=== PATIENT | male | born 1945 | race Two or more races ===

== ENCOUNTER 2016-04-21 23:46 | Emergency (ER) | payer MEDICARE, OTHER ==
[2016-04-21] MEDS ORDERED: IOPAMIDOL 370 (76%) 100 ML VIAL IV ONE (23:47)
[2016-04-22 00:26] LABS: ABSOLUTE NEUTROPHIL COUNT 6.5 K/mm3 (1.8-7.7); BASO # 0.1 K/mm3 (0.0-0.2); BASO % 0.7 % (0.2-1.0); EOS # 0.2 (0.0-0.5); EOS % 2.4 % (0.9-2.9); HEMOGLOBIN 14.8 gm/l (14.0-18.0); IMM NEUT # 0.1 K/mm3 (0-0.2); IMM NEUT% 0.6 % (0-1); LYMPH # 1.3 (1.0-4.8); LYMPH % 15.1 % (15-45); MEAN CELL VOLUME 89.3 fl (80.0-94.0); MEAN CORPUSCULAR HEMOGLOBIN 29.4 pg (27.0-31.0); MEAN CORPUSCULAR HGB CONC 32.9 g/dl (33.0-37.0); MEAN PLATELET VOLUME 9.5 fl (7.4-10.4); MONO # 0.7 (0.0-0.8); MONO % 7.6 % (4-12); NEUT % 73.6 % (43-75); PLATELET COUNT 268 K/mm3 (130-400); RED CELL DISTRIBUTION WIDTH 12.5 % (11.5-14.5)
[2016-04-22 00:45] LABS: ALB/GLOB RATIO 1.6 (>1.0); ALBUMIN 4.2 gm/dL (3.5-5.7); CALCIUM 9.3 mg/dL (8.6-10.3)
[2016-04-22 00:48] LABS: TROPONIN I < 0.01 ng/ml (0.0-0.06)
[2016-04-22 00:51] LABS: CKMB ISOENZYME 2.6 ng/ml (0.6-6.3)
[2016-04-22 02:17] LABS: SPECIFIC GRAVITY 1.015 (1.001-1.030); URINE BILIRUBIN NEGATIVE (NEGATIVE); URINE BLOOD NEGATIVE (NEGATIVE); URINE GLUCOSE (UA) NEGATIVE (NEGATIVE); URINE LEUKOCYTE ESTERASE NEGATIVE (NEGATIVE); URINE NITRITE NEGATIVE (NEGATIVE); URINE PROTEIN NEGATIVE (NEGATIVE); URINE UROBILINOGEN NORMAL (0-1 mg/dl)
[2016-04-22 02:20] LABS: URINE APPEARANCE CLEAR; URINE COLOR YELLOW
[2016-04-22] MEDS ORDERED: MAALOX/LIDO2%VISC/SIMETHICONE 40 ML BOT ONE (03:44)
--- NOTE | 2016-04-22 07:54 | CT ---
Exam Type: ABD/PELVIS W/ CON Date and Time: 04/22/2016 1:12 AM Clinical information: Diffuse abdominal pain for 2 days. Comparison: None Procedure: Imaging device: [employer] Aquilion [address] scanner 1 mm axial images were obtained through the abdomen and pelvis. Stacked reconstructed 3, 4 and 5 mm images were photographed in the axial coronal and sagittal planes. No oral contrast was utilized for this examination. 100 ml of Isovue-370 was injected intravenously. Exam: with intravenous contrast. FINDINGS: Lung bases:The visualized lung bases appear to be appropriate with no mass, effusion or consolidation visualized. Liver: the liver is homogeneous with no discrete abnormality visualized. No definite findings of biliary dilatation are observed. Spleen: The spleen is homogeneous and does not appear to be enlarged. Gallbladder: Normal without enlargement or evidence of adjacent inflammatory changes. Pancreas: Normal without enlargement or evidence of adjacent inflammatory changes. Adrenal glands: Normal without enlargement or evidence of adjacent inflammatory changes. Abdominal aorta: Atherosclerotic vascular calcification seen. No focal aneurysm is visualized. Kidneys: There are multiple bilateral low-attenuation foci observed likely reflecting renal cysts. Nonspecific fluid infiltration of the perinephric fat is observed. No evidence of hydronephrosis is visualized. Bowel structures: The visualized bowel is of normal caliber without dilatation or obstruction. There is evidence of thickening and edema suggested involving the distal stomach and proximal duodenum, likely reflecting ulcerative disease. On axial image #40, there is the suggestion of the medial outpouching with considerations including a duodenal diverticulum versus an area of ulceration. No evidence of free air is suggested. Appendix: The appendix is well-visualized and appears to be of normal caliber. No periappendiceal inflammatory changes or CT findings of appendicitis are currently observed. Bladder: The bladder is of normal contour. No wall thickening or significant distention is observed. Hernia: Bilateral fat filled inguinal hernias are present. Adenopathy: A few mildly prominent epigastric retroperitoneal lymph nodes are visualized. There is a lymph node measuring 11 mm on image 48 adjacent to the aorta, as well as a peripancreatic lymph node on image 39 measuring 8 mm in size. Osseous structures: Multilevel thoracic and lumbar degenerative changes are observed. There is evidence of bilateral spondylolysis of L5 with slight anterolisthesis of L5 on S1. Pelvic structures: No discrete pelvic abnormalities are visualized in this examination. IMPRESSION: 1. Prominent edematous changes involving the distal stomach and proximal duodenum suggestive of ulcerative disease. The medial outpouching is suggested involving the proximal duodenum which may reflect a duodenal diverticulum or focal ulcer. Consideration may be given to endoscopy as clinically indicated. No definite evidence of free air is observed. 2. A few mildly prominent retroperitoneal epigastric lymph nodes. 3. Bilateral renal cysts with nonspecific infiltration of the perirenal fat. 4. Bilateral fat filled inguinal hernias. 5. Multilevel thoracic and lumbar degenerative changes. 6. 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 The findings were called to the emergency room at 0213 hours, 04/22/2016, by [facility].
== END 2016-04-22 04:02 | disposition home or self-care (01) ==
LOC: ED 23:46
DX: K27.9 Peptic ulcer, site unspecified, unspecified as acute or chronic, without hemorrhage or perforation (principal); R10.13 Epigastric pain; E11.9 Type 2 diabetes mellitus without complications; Z79.84 Long term (current) use of oral hypoglycemic drugs; Z79.4 Long term (current) use of insulin
CPT/HCPCS: 83690; 85025; 82550; 82553; 80053; 81003; 84484; 74177; 99284 ×2; 93005; A9270; Q9967